=== PATIENT | female | born 1995 | race Caucasian/White ===

== ENCOUNTER 2025-03-04 00:13 | Outpatient (CLI) | payer OTHER, SELFPAY ==
[2025-03-04] VITALS (8 sets, daily range): BP systolic 124–142; BP diastolic 76–81; PULSE 73–95; O2SAT 98–100
[2025-03-04 00:45] LABS: Basophils Percent Auto 0.4 % (0.2-1.2); Eosinophils Percent Auto 0.2 % (0-4.4); Hematocrit 36.8 % (37.0-47.0); Immature Granulocyte Percent A 1.1 % (0-0.5); Lymphocytes Absolute Auto 1.48 K/mm3 (0.9-3.2); Lymphocytes Percent Auto 16.1 % (18.3-44.2); Mean Corpuscular HGB Conc 32.6 g/dl (32-36); Mean Corpuscular Hemoglobin 29.3 pg (26-34); Mean Platelet Volume 10.5 fl (7.4-10.4); Monocytes Absolute Auto 0.7 K/mm3 (0.1-0.6); Monocytes Percent Auto 7.6 % (2.6-8.5); Neutrophils Absolute Auto 6.9 K/mm3 (1.3-6.7); Neutrophils Percent Auto 74.6 % (45.5-73.1); Platelet Count Result 172 k/mm3 (150-375); Red Blood Count 4.09 M/mm3 (4.2-5.4); Red Cell Distribution Width 14.2 % (11.5-14.5); White Blood Count 9.2 K/mm3 (4.5-10.0)
[2025-03-04 00:53] LABS: Creatinine Urine 126.9 mg/dL; Total Protein Urine Random 9 mg/dL; Ur Ttl Prot Creatinine Ratio 0.07 mg/mg (0-0.20)
[2025-03-04 00:56] LABS: Alanine Aminotransferase 49 U/L (6-35); Albumin Level 3.3 g/dL (3.5-5.1); Alkaline Phosphatase 162 U/L (38-126); Anion Gap 10 mmol/L (4-12); Aspartate Amino Transferase 26 U/L (14-36); Bilirubin,Total 0.4 mg/dL (0.2-1.3); Blood Urea Nitrogen 8 mg/dL (7-17); Calcium 8.9 mg/dL (8.4-10.2); Carbon Dioxide 17 mmol/L (22-30); Chloride 107 mmol/L (98-107); Estimated Glomerular Filt Rate > 60; Glucose 125 mg/dL (65-110); Potassium 3.5 mmol/L (3.4-5.0); Sodium 134 mmol/L (137-145); Uric Acid 4.3 mg/dL (2.5-7.5)
[2025-03-04 00:58] LABS: Add Urine Microscopic? YES; Appearance Urine Cloudy (Clear); Bacteria Urine 1+ /hpf; Bilirubin Urine Negative (Negative); Blood Urine Negative (Negative); Calcium Oxalate Crystals Urine Present /hpf; Color Urine Yellow (Yellow); Glucose Urine UA Negative (Negative); Ketones Urine Trace mg/dL (Negative); Leukocyte Esterase Ur Negative LEU/UL (Negative); Mucus Urine Present /lpf; Nitrate Urine Negative (Negative); Non Pathogenic Casts 0-2; Protein Urine Trace mg/dL (Negative); RBC Urine 0-2 /hpf (0-2); Specific Grav Ur 1.028 (1.001-1.035); Squamous Epithelial Cell Urine Moderate /hpf (Few); pH Urine 6.5 (5.0-9.0)
--- NOTE | 2025-03-04 01:05 | PC.NURSE ---
0013- Patient arrives to OB unit via EMS with complaints to a sudden onset of a headache while laying in bed in the last 30-45 minutes and is rating it a 10/10 as well as blurred vision. Patient denies any complications this , she is a with an EDC of 04/05/25. Patient does not see an OB provider that goes here, she states she sees a provider at [facility]. Patient states she took tylenol around 2300 that has not helped her headache. Patient denies any vaginal bleeding or leaking of fluid. Patient has positive movement. 0040- RN notified MD of patient arrival and patient complaints. MD gave orders. 0100- RN notified MD of lab results, VS, and FHT tracing with moderate variability and accelerations as well as no contractions. RN notified MD tylenol was not given due to the patient taking it at 2300. MD gave orders to transfer the patient to the ED to be evaluated.
== END 2025-03-04 01:02 | disposition other institution (70) ==
LOC: ANHOBOP 00:21 → ANHLDR 00:28
PROVIDERS: Visit Provider Obstetrics & Gynecology
DX: Z34.90 Encounter for supervision of normal pregnancy, unspecified, unspecified trimester (principal); R51.9 Headache, unspecified; Z3A.00 Weeks of gestation of pregnancy not specified
CPT/HCPCS: 36415; 59025; 80053; 81001; 82570; 84156; 84550; 85025; 99199

== ENCOUNTER 2025-03-04 01:11 | Emergency (ER) | payer OTHER, SELFPAY ==
--- NOTE | ~2025-03-04 | CT_ITS ---
Non-contrast Head CT History: Headache Technique: Axial non-contrast imaging of the brain was performed. Dose reduction technique was used on this scan by utilizing automated exposure control and iterative reconstruction technique. The dose -length product (DLP) was 681.00 mGy-cm. 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 No other mass lesion noted. No intracranial hemo rrhage or acute infarct.. Brain parenchyma appears normal. The ventricles and subarachnoid spaces a re normal in size. The calvarium appears normal. The visualized paranasal sinuses and mastoid air c ells are clear. 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 Pituitary mass protocol MRI recommended for furt her evaluation. Reviewed, dictated and finalized at [facility]. 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 Pituitary mass protocol MR I recommended for further evaluation.
[2025-03-04 01:13] VITALS: BP 123/81; PULSE 76; RESP 20; TEMP 37; O2SAT 100
--- NOTE | 2025-03-04 01:18 | ED.GENADULT ---
HPI - General Adult General Chief complaint: Headache Stated complaint: Headache Time Seen by Provider: 03/04/25 01:17 History of Present Illness HPI narrative: Patient is a 29-year-old female who presents to the emergency department this evening complaining of sudden onset headache to the back of her head which started approximately 2 hours ago. States that the headache now wraps to the front describing as a tight band around her head. Patient is 35 weeks , denies any recent falls or head trauma, denies any history of hypertension or any complication with her thus far denying any history of preeclampsia or eclampsia. Patient denies any recent illness, fevers or chills. Denies any history of headaches and admits that this headache started suddenly while she was resting. Patient denies any vision changes. Patient was initially seen at L&D for evaluation for preeclampsia and was then sent to the emergency department after willing out preeclampsia. Patient's blood pressures have been stable. Related Data Allergies Allergy/AdvReac Type Severity Reaction Status Date / Time No Known Allergies Allergy Verified 03/04/25 01:34 Review of Systems Review of Systems: All systems are reviewed and are negative unless stated otherwise in the HPI. Exam Narrative: General: Alert, awake, afebrile, in moderate distress secondary to pain. HEENT: PERRL, no rhinorrhea, no post nasal drip, oropharynx clear, no temporal tenderness. Neck: Trachea midline, no JVD, no lymphadenopathy. Cardiovascular: Regular rate and rhythm, no murmurs, rubs or gallops, no peripheral edema. Respiratory: Clear to auscultation bilaterally, no tachypnea, no wheezing, no rhonchi, no rubs, no respiratory distress. Abdomen: Soft, nontender, nondistended, no rebound, no guarding, no peritoneal signs. Musculoskeletal: No joint swelling or deformity, normal muscle tone. Skin: No rashes or petechia, no signs of infection. Psychiatric: Alert and oriented, normal behavior and judgment for situation. Neurological: Alert and oriented to person, place, and time. Follows all commands. No focal deficits, speech is clear and fluent. Course Vital Signs Vital signs: Vital Signs Temperature 98.6 F 03/04/25 01:13 Pulse Rate 76 03/04/25 01:13 Respiratory Rate 20 03/04/25 01:13 Blood Pressure 123/81 03/04/25 01:13 Pulse Oximetry 100 03/04/25 01:13 Oxygen Delivery Room Air 03/04/25 01:13 Temperature 98.6 F 03/04/25 01:13 Pulse Rate 94 03/04/25 03:00 Respiratory Rate 17 03/04/25 03:00 Blood Pressure 120/68 03/04/25 03:00 Pulse Oximetry 97 03/04/25 03:00 Oxygen Delivery Room Air 03/04/25 01:13 Medical Decision Making MDM Narrative Medical decision making narrative: The patient was evaluated by myself in the emergency department. History is obtained from patient who is an independent historian and physical exam was performed. External medical records were reviewed at this time. IV was established and pertinent tests were ordered. Patient was administered 2 L IV fluid bolus with normal saline, 10 mg IV Reglan, 25 mg of IV Benadryl, and 1 g of oral Tylenol for headache. Laboratory results obtained today at L&D included a CBC and CMP and were reviewed revealing no acute process. Urinalysis revealed cloudy urine with trace ketones, 6-10 white blood cells and 1+ bacteria. 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 At this time, patient was informed of these findings at bedside. [facility] transfer center was contacted at 0212 and transfer was initiated for higher level of care including neurosurgery/Maternal- Medicine. Did receive a call back from the on-call physician through the maternal medicine at [facility] Dr. Geronimo at [phone] who accepted transfer. She wants the patient to be sent directly to their L & D triage. Differential diagnosis considerations include intracranial hemorrhage including subarachnoid, dehydration, migraine headache, tension headache, preeclampsia. Comorbidities impacting this visit include none. I have evaluated and discussed social determinants of health with the patient that could potentially impact subsequent diagnosis and treatment plans. On repeat assessment of the patient, reevaluation revealed that the patient is doing well and is in no acute distress. Patient symptoms have improved since she arrived to our emergency department. Repeat vital signs were all reviewed and noted to be stable. Differential diagnosis and treatment plan were discussed with the patient at bedside. Patient agrees with discussion and after shared medical decision making agrees with transfer. All questions were answered to the patient's satisfaction. Vital Signs Vital Signs: Vital Signs Temperature 98.6 F 03/04/25 01:13 Pulse Rate 76 03/04/25 01:13 Respiratory Rate 20 03/04/25 01:13 Blood Pressure 123/81 03/04/25 01:13 Pulse Oximetry 100 03/04/25 01:13 Oxygen Delivery Room Air 03/04/25 01:13 Temperature 98.6 F 03/04/25 01:13 Pulse Rate 94 03/04/25 03:00 Respiratory Rate 17 03/04/25 03:00 Blood Pressure 120/68 03/04/25 03:00 Pulse Oximetry 97 03/04/25 03:00 Oxygen Delivery Room Air 03/04/25 01:13 Discharge Plan Discharge Clinical Impression: Headache, Nausea, Pituitary mass Patient Disposition: Acute Care Hospital Condition: Stable Patient Language: Indonesian Follow-up/Referrals: UNKNOWN,DOCTOR [Primary Care Provider] - Time of Disposition: 03:17
--- NOTE | 2025-03-04 01:20 | PC.NURSE ---
pt currently in ct unable to medicate at this time
--- NOTE | 2025-03-04 01:26 | PC.NURSE ---
Pt in CT at this time.
--- OUTSIDE RECORDS SUMMARY | 2025-03-04 01:33 | XMS_ITS | Encounter Summary ---
Author Organization [facility] Address [facility] [place] [address] Care Team Providers Care Story Teller Name Role Phone Celena Baker Primary Care Provider [phone] Encounter Details Date Type Department Care Team (Late st Contact Info) Description 07/28/2024 Workboardt Message Enc [facility] [address] [place] [id number] Celena Baker APNP [address], [place] [id number] Wellbutrin Social History Tobacco Use Types Packs/Day Years Used Date Smoking Tobacco: Some Days Cigarettes 0.3 5 Smokeless Tobacco: Never Comments:Would like to quit. 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
--- OUTSIDE RECORDS SUMMARY | 2025-03-04 01:33 | XMS_ITS | Clinical Summary ---
Author Organization [facility] Address [address] [place] [id number] Care Team Providers Care Fitness And Wellness Manager Name Role Phone Celena Baker Primary Care Provider Allergies No known active allergies Medications probiotic (FLORAJEN3) Cap capsule Take 1 capsule by mouth daily with breakfast. Active buPROPion XL (WELLBUTRIN XL) 300 MG 24 hr tabletIndicatio ns:Major depressive disorder with single episode, in partial remission TAKE 1 TABLET BY MOUTH DAILY. 90 tablet 1 11/12/2024 Active Vit-Fe Fumarate-FA ( VITAMIN) 27-0.8 MG Tab 07/26/2024 Active Active Problems Problem Noted Date Diagnosed Date , first ([facility]) 12/30/2024 Nephrolithiasis 12/30/2024 Epigastric pain 01/13/[address] scan 01/13/2024 Depression 09/12/2023 Current every day smoker 09/12/2023 Estimated Date of Delivery Comme nts Yes 04/05/2025 Based on Other B asis Encounters Date Type Department Care Team Description 01/03/2025 Telephone [facility] Family & Internal Medicine - [address] [id number] Celena Baker APNP [facility] 12/30/2024 12:11 PM [facility]ER - 01/01/2025 11:35 AM [facility] Hospital Encounter [facility] [place] [address] Joe Grant MD (CVA tenderness, nausea and vomiting, chills ) Discharge Disposition: Home or Self Care (Routine Discharge) 12/30/2024 Travel from Last 3 Months Immunizations Immunization Administration Dates Next Due Dtap (Acel-Immune) 02/19/2001 Hepatitis B (Recombivax Hb 10 Mcg) 01/14/2023 Influenza (Generic) 08/29/2021 Influenza Adult (Generic) 09/04/2023,10/16/2018 MMR (MMRII) 02/19/2001 PFIZER COVID-19 (ORIGINAL FO RMULATION, PURPLE CAP) mRNA, LNP-S, PF, 30 MCG/0.3 ML DOSE 07/08/2021,05/26/2021 Polio IPV (Ipol) 02/19/2001 Family History Medical History Relation Comments Alcohol Abuse Father Depression Father Alcohol Abuse Maternal Grandfather Cancer Maternal Grandmother ovarian Alcohol Abuse Maternal Uncle 1 Cancer Maternal Uncle 2 prostate Alcohol Abuse Mother Depression Mother Hyperlipidemia Mother Cancer Paternal Aunt pancreatic Cancer Paternal Grandfather lung, smoke r Relation Status Comments Father Maternal Grandfather Maternal Grandmother Maternal Uncle 1 Maternal Uncle 2 Mother Paternal Aunt Paternal Grandfather Social History Tobacco Use Types Packs/Day Years Used Date Smoking Tobacco: Former Cigarettes 0.3 5 Smokeless Tobacco: Never Tobacco Cessation:Counseling Given: Not Answered Comments:Would like to quit. Smokes cigarettes socially not daily, Now vaping Provider to weight loss counselor. Alcohol Use Standard Drinks/Week Comments Yes 5 (1 standard drink = 0.6 oz pur e alcohol) PHQ-2 Answer Date Recorded Patient Health Questionnaire-2 Score 1 04/16/2024 Estimated Date of Delivery Comme nts Yes 04/05/2025 Based on Other B asis Sex and Gender Information Value Date Recorded Sex Assigned at Female 12/30/2024 12:07 PM BALLASTER Legal Sex Female 9:41 PM CDT Gender Identity Not on file Sexual Orientation Not on file Last Filed Vital Signs Vital Sign Reading Time Taken Comments Blood Pressure 120/72 01/01/2025 8:00 AM B[facility]ER Pulse 80 01/01/2025 8:00 AM BALLASTER Temperature 36.9 C (98.5 F) 01/01/2025 8:00 AM BALL[facility]ER Respiratory Rate 16 01/01/2025 8:00 AM BALLASTER Oxygen Saturation 98% 01/01/2025 8:00 AM BALLASTER Inhaled Oxygen Concentration - - Weight 86.2 kg (190 lb) 12/31/2024 6:08 AM BALLASTER Height 167.6 cm (5' 6 ) 12/31/2024 6:08 AM BALLASTER Body Mass Index 30.67 12/31/2024 6:08 AM BALLASTER Plan of Treatment Health Maintenance Due Date Last Done Comments Cervical Cancer Screening Pa p Smear (Age 21 to 29) Every 3 Years 1995 Annual Physical 1998 Hepatitis C 2013 DTaP, Tdap and Td Vaccines ( 2 - Tdap) 2014 02/19/2001 Hepatitis B Vaccines (1 of 3 - 19+ 3-dose series) 2014 01/14/2023 COVID-19 Vaccine (2023-2 5 season) 2024 07/08/2021, 05/26/2021 PHQ-2 (Physician Mckinney) 11/03/2024 04/16/2024 Cervical Cancer Screening 04/16/2025 Po stponed from 1995 (Going to Outside Clinic) HPV Vaccines Aged Out No longer eligi ble based on patient's age to complete this topic Meningococcal B Vaccine Aged Out No l onger eligible based on patient's age to complete this topic Meningococcal Vaccine Aged Out No eran paloma eligible based on patient's age to complete this topic Pneumococcal Vaccine: Pediatrics (0 to 5 Years) and At-Risk Patients (6 to 49 Years) Aged Out No longer eligible b ased on patient's age to complete this topic RSV Immunization or 60+ Years (No Doses Required) Completed RSV Immunizations Under 20 Months Aged Out No longer eligible b ased on patient's age to complete this topic Procedures Procedure Name Priority Date/Time Associated Diagnosis Comments BASIC METABOLIC PANEL STAT 12/31/2024 11:[address] ABD+PEL WO CON STAT 12/31/2024 9:4 6 AM BALL[facility]ER TYPE & SCREEN Routine 12/31/2024 6:12 AM BALLASTER CBC W/DIFF AUTOMATED STAT 12/31/2024 6:12 AM BALLASTER US RETROPERITONEAL COMP STAT 12/30/19 4:40 PM BALL[facility]ER URINE BACTERIA CULTURE Routine 2:45 PM BALLASTER HC URINALYSIS AUTO W/O MICRO STAT 12/30/2024 2:45 PM BALLASTER CBC W/DIFF AUTOMATED STAT 12/30/2024 1:10 PM BALLASTER from Last 3 Months Results * (ABNORMAL) BASIC METABOLIC PANEL (12/31/2024 11:27 AM BALLASTER) [facility] GLUCOSE 99 70 - 99 MG/DL 12/31/2024 12:10 PM B[facility]ER [facility] BUN 6(L) 7 - 18 MG/DL 12/31/2024 12:10 PM [facility] CREATININE S/P/B 0.78 0.55 - 1.02 MG/DL 12/31/2024 12:10 PM [facility] SODIUM S/P/B 140 136 - 145 MMOL/L 12/31/2024 12:10 PM [facility] POTASSIUM S/P/B 3.5 3.5 - 5.1 MMOL/L 12/31/2024 12:10 PM [facility] CHLORIDE S/P/B 110 97 - 115 MMOL/L 12/31/2024 12:10 PM [facility] CO2 24.2 21 - 32 MMOL/L 12/31/2024 12:10 PM [facility] CALCIUM S/P/B 8.7 8.5 - 10.1 MG/DL 12/31/2024 12:10 PM [facility]ER [facility] ANION GAP 5.8 2 - 10 MMOL/L 12/31/2024 12:10 PM [facility] BUN CREATININE RATIO 7.7 6 - 26 12/31/2024 12:10 PM [facility] GFR ESTIMATE >90 >90 ML/MIN/1.7 3 M2 12/31/2024 12:10 PM [facility] Comment: NOTE: eGFR is not calculated for patients <18 years of age or gender unknown. This is an estimated GFR calculation using the new CKD EPI creatinine equation without race and so does not require a correction factor for race. This estimated GFR should not be used for calculating drug doses. 12/31/2024 11:2 7 AM BALLASTER Mart Spence MD LABORATORY Final R esult [facility] [address] [place] [address], [place] [phone] * CT ABD+PEL WO CON (12/31/2024 9:46 AM BALLASTER) Anatomical Region Laterality Modality Abdomen Computed Tomogra phy 12/31/2024 10:3 0 AM B[facility]ER Impressions 12/31/2024 12:32 PM BALLASTER =====IMPRESSION:===== 1. Left proximal ureteral stone suspected. This could be obstructive. Mild hydronephrosis and hydroureter proximal to this area is suspected. The stone may be slightly asymmetrically position relative to the ureter and some prominence of the ureter distal to this area is not definitely excluded. This appearance alternatively could be due to adjacent structures. 2. Nonobstructive right renal stones. Right hydronephrosis and hydroureter is seen. Hydroureter is noted to the area of likely compression between the uterus and psoas muscle. No definite obstructing stone on the right side is seen. 3. Additional findings as described above. Ordered By: MART SEPNCE Interpreted By: Ty Green MD, 12/31/2024 10:30 AM Narrative 12/31/2024 12:32 PM B[facility]ASTER [facility] [address] [place], [place] [address] EXAMINATION: CT Abdomen and Pelvis without contrast EXAM DATE/TIME: 12/31/2024 9:40 AM REASON FOR EXAM: rule out ureteral stone Patient . Provider aware and still wants scan according to technologist. Referring clinician states: discussed with patient and OB team. COMPARISON: None TECHNIQUE: Axial CT images of the abdomen and pelvis are obtained without the use of IV contrast agent. Subsequent coronal and sagittal reformatted sequences are created for evaluation. A dose lowering technique was used for this procedure, which may include, but is not limited to, dose reduction technique, automated exposure control, the use of iterative reconstruction, and ALARA (As Low As Reasonably Achievable) / Image Gently techniques. FINDINGS: Exam is somewhat limited due to metallic artifact from prior spinal surgery. 3 mm calcification is seen on image 72. I suspect this is within the left ureter although some images show this to be possibly slightly asymmetrically position relative to the ureter such as on image 59 of coronal series 4. Mild left hydronephrosis and hydroureter is noted proximal to this stone. The suspected stone is seen positioned adjacent to the L3 vertebra. Mild hydroureter is suspected. This however may extend distal to the area of suspected stone. Multiple right ureteral stones are seen which are nonobstructive located in the inferior right kidney. Likely conglomeration of small stones such as on image 60 of axial series 2 is seen. Suspected conglomerate measures 9 mm. Additional stone more inferiorly is seen on image 66. Mild to moderate right hydronephrosis and hydroureter is seen to the region of the superior anatomic pelvis. There is likely compression of the right ureter between the uterus and psoas musculature. The ureter distal to this region is not well visualized. No definite right ureteral stone or urinary bladder stone is seen. Lung Bases: Bilateral linear atelectasis is noted. Liver:Unremarkable. Gallbladder and Biliary system:Prior cholecystectomy is noted. Pancreas:Unremarkable. Spleen:No splenomegaly. Kidneys:As described above Ureters and bladder: As described above. In addition, the urinary bladder is somewhat distended. Adrenals:Normal. Bowel:Colonic and rectal stool is seen. No small bowel dilatation is seen.The stomach, duodenum, and viewed portions of the esophagus are unremarkable.The appendix is visualized and is within normal limits. Aorta and Retroperitoneum:No enlarged lymph nodes. Aorta is not aneurysmal. Pelvic Organs:Intrauterine gestation is noted. Evaluation is limited. Bone/Musculoskeletal: Postoperative changes spine is incompletely visualized. Curvature the spine is seen. Ascites: None Additional Findings: other Procedure Note Ty Green MD - 12/31/[address] [address] EXAMINATION: CT Abdomen and Pelvis without contrast EXAM DATE/TIME: 12/31/2024 9:40 AM REASON FOR EXAM: rule out ureteral stone Patient . Provider aware and still wants scan according totechnologist. Referring clinician states: discussed with patient and OBteam. COMPARISON: None TECHNIQUE: Axial CT images of the abdomen and pelvis are obtained withoutthe use of IV contrast agent. Subsequent coronal and sagittal reformattedsequences are created for evaluation. A dose lowering technique was usedfor this procedure, which may include, but is not limited to, dosereduction technique, automated exposure control, the use of iterativereconstruction, and ALARA (As Low As Reasonably Achievable) / Image Gentlytechniques. FINDINGS: Exam is somewhat limited due to metallic artifact from priorspinal surgery. 3 mm calcification is seen on image 72. I suspect this is within the leftureter although some images show this to be possibly slightlyasymmetrically position relative to the ureter such as on image 59 ofcoronal series 4. Mild left hydronephrosis and hydroureter is notedproximal to this stone. The suspected stone is seen positioned adjacent tothe L3 vertebra. Mild hydroureter is suspected. This however may extenddistal to the area of suspected stone. Multiple right ureteral stones are seen which are nonobstructive locatedin the inferior right kidney. Likely conglomeration of small stones suchas on image 60 of axial series 2 is seen. Suspected conglomerate measures9 mm. Additional stone more inferiorly is seen on image 66. Mild tomoderate right hydronephrosis and hydroureter is seen to the region of thesuperior anatomic pelvis. There is likely compression of the right ureterbetween the uterus and psoas musculature. The ureter distal to this regionis not well visualized. No definite right ureteral stone or urinarybladder stone is seen. Lung Bases: Bilateral linear atelectasis is noted. Liver:Unremarkable. Gallbladder and Biliary system:Prior cholecystectomy is noted. Pancreas:Unremarkable. Spleen:No splenomegaly. Kidneys:As described above Ureters and bladder: As described above. In addition, the urinary bladderis somewhat distended. Adrenals:Normal. Bowel:Colonic and rectal stool is seen. No small bowel dilatation isseen.The stomach, duodenum, and viewed portions of the esophagus areunremarkable.The appendix is visualized and is within normal limits. Aorta and Retroperitoneum:No enlarged lymph nodes. Aorta is notaneurysmal. Pelvic Organs:Intrauterine gestation is noted. Evaluation is limited. Bone/Musculoskeletal: Postoperative changes spine is incompletelyvisualized. Curvature the spine is seen. Ascites: None Additional Findings: other =====IMPRESSION:===== 1. Left proximal ureteral stone suspected. This could be obstructive.Mild hydronephrosis and hydroureter proximal to this area is suspected.The stone may be slightly asymmetrically position relative to the ureterand some prominence of the ureter distal to this area is not definitelyexcluded. This appearance alternatively could be due to adjacentstructures. 2. Nonobstructive right renal stones. Right hydronephrosis andhydroureter is seen. Hydroureter is noted to the area of likelycompression between the uterus and psoas muscle. No definite obstructingstone on the right side is seen. 3. Additional findings as described above. Ordered By: MART SPENCE Interpreted By: Ty Green MD, 12/31/2024 10:30 AM Mart Spence MD CT Final R esult * TYPE & SCREEN (12/31/2024 6:12 AM BALL[facility]ER) ABO/RH O POSITIVE 12/31/2024 7:43 AM [facility]ER [facility] ANTIBODY SCREEN NEGATIVE 12/31/2024 7:43 AM [facility]ER [facility] SAMPLE EXPIRATION 01/03/2025,2 359 12/31/2024 7:43 AM [facility] 12/31/2024 6:12 AM B[facility]ER Karen Jha MD BLOOD BANK TEST ORDERABLES Final Result [facility] [address] [place] [address], * (ABNORMAL) CBC W/DIFF AUTOMATED (12/31/2024 6:12 AM BALLASTER) Only the most recent of2 resultswithin the time period is included. WBC 9.68 4.5 - 11.0 x10'3/uL 12/31/2024 6:37 AM [facility] RBC 3.31(L) 4.20 - 5.40 x10'6/uL 12/31/2024 6:37 AM [facility] HGB 9.9(L) 12.0 - 16.0 G/DL 12/31/2024 6:37 AM [facility] HCT 30.3(L) 38.0 - 48.0 % 12/31/2024 6:37 AM [facility] MCV 91.5 81.0 - 99.0 FL 12/31/2024 6:37 AM [facility] MCH 29.9 27.0 - 31.0 PG 12/31/2024 6:37 AM [facility] MCHC 32.7 32.0 - 36.0 G/DL 12/31/2024 6:37 AM [facility] RDW 13.4 11.5 - 14.5 % 12/31/2024 6:37 AM [facility] PLT 149 130 - 400 x10'3/uL 12/31/2024 6:37 AM [facility] MPV 10.3 9.3 - 12.2 FL 12/31/2024 6:37 AM [facility] DIFFERENTIAL TYPE AUTOMATED DIFFERENTIAL 12/31/2024 6:37 AM [facility] NEUTROPHILS % 83.4 % 12/31/2024 6:37 AM [facility] LYMPHOCYTES % 10.6 % 12/31/2024 6:37 AM [facility] MONOCYTES % 4.8 % 12/31/2024 6:37 AM [facility] EOSINOPHILS 0.0 % 12/31/2024 6:37 AM [facility] BASOPHILS 0.2 % 12/31/2024 6:37 AM [facility] IMMATURE GRANS % 1.0 % 12/31/19 6:37 AM [facility] ABS. NEUTROPHILS 8.07(H) 1.80 - 7.70 x10'3/uL 12/31/2024 6:37 AM [facility] ABS. LYMPHOCYTES 1.03 1.00 - 4.80 x10'3/uL 12/31/2024 6:37 AM [facility] ABS. MONOCYTES 0.46 0.24 - 0.86 x10'3/uL 12/31/2024 6:37 AM [facility] ABS. EOSINOPHILS 0.00(L) 0.04 - 0.36 x10'3/uL 12/31/2024 6:37 AM [facility] ABS. BASOPHILS 0.02 0.01 - 0.08 x10'3/uL 12/31/2024 6:37 AM [facility] ABS. IMMATURE GRANULOCYTES 0.10 0.00 - 0.49 x10'3/uL 12/31/2024 6:37 AM [facility]ER [facility] 12/31/2024 6:12 AM BALL[facility]ER Karen Jha MD LABORATORY Final Resu lt [facility] [address] [place] [address], [place] [phone] * US RETROPERITONEAL COMP (12/30/2024 4:40 PM BALLASTER) Anatomical Region Laterality Modality Abdomen Ultrasound 12/30/2024 4:46 PM B[facility]ER Impressions 12/30/2024 4:56 PM B[facility]ER IMPRESSION: 1. Mild bilateral hydronephrosis. 2. 5.7 mm echogenic foci in the lower pole right kidney consistent with calcification. No apparent left renal calcification. 3. Right ureteral jet visualized in the urinary bladder but not the left ureteral jet. Ordered By: KAREN JHA Interpreted By: Catrachito Reza, 12/30/2024 4:46 PM Narrative 12/30/2024 4:56 PM B[facility]ER [facility] [address] [place], [place] [address] IMAGING STUDIES: US RETROPERITONEAL COMP DATE: 12/30/2024 3:51 PM HISTORY: left flank pain, hematuria 29-year-old female. Approximately 26 week 2 day gestation . Left flank pain and microscopic hematuria. Patient reports onset of left flank pain at 0400 hours today with associated vomiting. History right cervical pain as 10/10 on the pain scale. She reports good movement with no vaginal fluid leakage or contractions. COMPARISON: CT abdomen pelvis with contrast 11/18/2023. DISCUSSION: Right kidney 13.1 x 6.6 x 6.8 cm. Mild right hydronephrosis. In the lower pole right kidney is 5.7 x 5.3 x 3.4 mm echogenic foci with color Doppler artifact consistent with calcification. Left kidney 12.7 x 6.1 x 6.3 cm. Mild left hydronephrosis. No appreciable left renal calcification. Normal color Doppler signal within both kidneys. Mild urinary bladder distention. No focal wall thickening or bladder calcification. On color Doppler imaging of the urinary bladder, right ureteral jet visualized consistent with patent ureter. The left ureteral jet was not visualized during the time of interrogation. Limited imaging including cine images. cardiac motion with estimated heart rate 136 bpm on M-mode ultrasound. Upper abdominal inferior vena cava within normal limits on grayscale and color Doppler imaging. Procedure Note Catrachito Reza MD - 12/30/[address] [address] IMAGING STUDIES: US RETROPERITONEAL COMPDATE: 12/30/2024 3:51 PM HISTORY: left flank pain, hematuria 29-year-old female.Approximately 26 week 2 day gestation . Left flank pain andmicroscopic hematuria. Patient reports onset of left flank pain at 0400hours today with associated vomiting. History right cervical pain as 10/10on the pain scale. She reports good movement with no vaginal fluidleakage or contractions. COMPARISON: CT abdomen pelvis with contrast 11/18/2023. DISCUSSION: Right kidney 13.1 x 6.6 x 6.8 cm. Mild right hydronephrosis. In the lowerpole right kidney is 5.7 x 5.3 x 3.4 mm echogenic foci with color Dopplerartifact consistent with calcification. Left kidney 12.7 x 6.1 x 6.3 cm. Mild left hydronephrosis. No appreciableleft renal calcification. Normal color Doppler signal within both kidneys. Mild urinary bladder distention. No focal wall thickening or bladdercalcification. On color Doppler imaging of the urinary bladder, rightureteral jet visualized consistent with patent ureter. The left ureteraljet was not visualized during the time of interrogation. Limited imaging including cine images. cardiac motion withestimated heart rate 136 bpm on M-mode ultrasound. Upper abdominal inferior vena cava within normal limits on grayscale andcolor Doppler imaging. IMPRESSION: 1. Mild bilateral hydronephrosis. 2. 5.7 mm echogenic foci in the lower pole right kidney consistent withcalcification. No apparent left renal calcification. 3. Right ureteral jet visualized in the urinary bladder but not the leftureteral jet. Ordered By: KAREN JHA Interpreted By: Catrachito Reza, 12/30/2024 4:46 PM us Karen Jha MD ULTRASOUND Final Resu lt * (ABNORMAL) URINALYSIS (12/30/2024 2:45 PM BALLASTER) SPECIMEN TYPE URINE CLEAN CATCH 12/30/2024 2:47 PM [facility]ER [facility] COLOR (U) YELLOW 12/30/2024 3:20 PM [facility]ER [facility] TRANSPARENCY TURBID 12/30/2024 3:20 PM [facility] SPECIFIC GRAVITY (U) 1.020 1.001 - 1.030 12/30/2024 3:20 PM [facility]ER [facility] U PH 6.5 5.0 - 9.0 12/30/2024 3:20 PM [facility] LEUKOCYTES (U) NEGATIVE NEGATIVE 12/30/2024 3:20 PM [facility]ER [facility] NITRITES NEGATIVE NEGATIVE 12/30/2024 3:20 PM [facility] PROTEIN RANDOM (U) NEGATIVE <30 MG/DL 12/30/2024 3:20 PM [facility]ER [facility] GLUCOSE (U) NORMAL NORMAL MG/DL 12/30/2024 3:20 PM [facility] KETONES MG/DL (U) 20(A) NEGATIVE MG/DL 12/30/2024 3:20 PM [facility] UROBILINOGEN NORMAL NORMAL MG/DL 12/30/2024 3:20 PM [facility]ER [facility] BILIRUBIN (U) NEGATIVE NEGATIVE MG/DL 12/30/2024 3:20 PM B[facility]ER [facility] BLOOD (U) 3+(A) NEGATIVE 12/30/2024 3:20 PM [facility] MUCUS RARE /LPF 12/30/2024 3:20 PM [facility] WBC/HPF 4 <6 /HPF 12/30/2024 3:20 PM [facility]ER [facility] RBC/HPF >100(H) <6 /HPF 12/30/2024 3:20 PM [facility]ER [facility] BACTERIA (U) RARE(A) NONE /HPF 12/30/2024 3:20 PM [facility] SQUAMOUS EPITHELIALS FEW /HPF 12/30/2024 3:20 PM [facility]ER [facility] URINE SPECIMEN OBTAINED BY CLEAN CATCH PROCEDURE / Unknown 12/30/2024 2:45 PM BALLASTER us Karen Jha MD URINE ORDERABLES Final Res ult [facility] [address] [place] [address], [place] [phone] * URINE BACTERIA CULTURE (12/30/2024 2:45 PM BALLASTER) SPEC DESCRIPTION URINE CLEAN CATCH 12/30/2024 3:34 PM B[facility]ER [facility] SPECIAL REQUESTS NO SPECIAL REQUEST 12/30/2024 3:34 PM B[facility]ER [facility] CULTURE RESULT POLYMICROBIAL GROWTH CONSISTENT WITH NORMAL GENITAL SKY. SUSCEPTIBILITIES NOT ROUTINELY PERFORMED. 12/31/2024 8:06 AM B[facility]ASTER [facility] URINE SPECIMEN OBTAINED BY CLEAN CATCH PROCEDURE / Unknown 12/30/2024 2:45 PM BALLASTER 12/30/2024 3:34 PM BALLASTER us Karen Jha MD MICROBIOLOGY - GENERAL ORD ERABLES Final Result [facility] [address] [place] [address], [place] [phone] from Last 3 Months Insurance [employer] Advance Directives * Full Code (Latest Code Status on File) Date Activated Date Inactivated Comments 12/30/2024 4:19 PM 01/01/2025 1:39 PM Care Teams Fitness And Wellness Manager Relationship Specialty Start Date End Date Celena Baker APNP [address] [place] [id number] PCP - General NURSE PRACTITIONER 09/12/23
--- OUTSIDE RECORDS SUMMARY | 2025-03-04 01:33 | XMS_ITS | Data Portability ---
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 Michael Noonan [id number] Elizabeth Noonan 01/14/2025 1 [employer] (PPO) [id number] Elizabeth Noonan [id number] Elizabeth Noonan 01/28/2025 1 [employer] (PPO) [id number] Elizabeth Noonan [id number] Elizabeth Noonan 02/11/2025 1 U[employer] (PPO) [id number] Elizabeth Noonan [id number] Elizabeth Noonan 02/25/2025 1 UMR (PPO) [id number] Elizabeth Michael Noonan [id number] Elizabeth Saran Notes Date Note Type Note Provider Name and Address Organization Details Recorded Time 12/30/2024 text/html Elizabeth is her e for ob problem visitpatient is 26.2 weekspatient c/o really bad back pains since 4am this morningpatient c/o vomiting and feeling hot and cold as well Llui Agustin, [facility] [address], [place], [address], [facility] 12/30/2024 14:13:36 01/14/2025 text/html The patient sonja liconay consented to documentation via virtual scribe for this encounter. Patient is here today for a routine OB visit. She is currently at {{6 7 8 9 10 11 12 1 3 14 15 16 17 18 19 20 21 22 23 24 25 26 27 28 29 30 31 32 3 3 34 35 36 37 38 39 40 41 28.3#}} weeks gestation. vitamins: {{yes* no}} She {{has* has not}} felt movement.She denies any complaints of the presence of vaginal bleed, leaking fluid, abdominal cramps, nausea, vomiting, headache or visual disturbances. Pt has no concerns. EPDS score 7. 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 Joe Gratn MD [address] [place], [address], [facility] [employer] 02/04/2025 12:56:43 01/28/2025 text/html Patient is here today for a routine OB visit. She is currently at {{6 7 8 9 10 11 12 1 3 14 15 16 17 18 19 20 21 22 23 24 25 26 27 28 29 30 31 32 3 3 34 35 36 37 38 39 40 41 30.3#}} weeks gestation. vitamins: {{yes* no}} She {{has* has not}} felt movement.She denies any complaints of the presence of vaginal bleed, leaking fluid, abdominal cramps, nausea, vomiting, headache or visual disturbances. Pt. has no concerns. DORIS RUST NP [address] [place], [address], [facility] [employer] IV 02/01/2025 15:11:19 02/11/2025 text/html Patient is here today for a routine OB visit. She is currently at {{6 7 8 9 10 11 12 1 3 14 15 16 17 18 19 20 21 22 23 24 25 26 27 28 29 30 31 32 3 3 34 35 36 37 38 39 40 41 32.3#}} weeks gestation. vitamins: {{yes* no}} She {{has* has not}} felt movement.She denies any complaints of the presence of vaginal bleed, leaking fluid, abdominal cramps, nausea, vomiting, headache or visual disturbances. Pt. has no concerns DORIS RUST NP [address] [place], [address], [facility] [employer] 02/19/2025 15:42:38 02/25/2025 text/html Patient is here today for a routine OB visit. She is currently at {{6 7 8 9 10 11 12 1 3 14 15 16 17 18 19 20 21 22 23 24 25 26 27 28 29 30 31 32 3 3 34 35 36 37 38 39 40 41 34.3#}} weeks gestation. vitamins: {{yes* no}} She {{has* has not}} felt movement. She denies any complaints of the presence of vaginal bleed, leaking fluid, abdominal cramps, nausea, vomiting, headache or visual disturbances. PASQUALE GUERRA [address] [place], [address], [facility] 02/25/2025 16:41:40 OBGyn Episode Ob Episode Information Episode Created Date Number of Fetuses Patient Bloodtype Patient rh Status Prepregnancy Weight lbs Domestic Partner Domestic Partner Phone Father Name Scientific Research Associate Status 09/13/20 24 1 O Positive OPEN Fetus Data First Name Last Name Admitted to NICU Weight (g) Sex Living Outcome Pediatric Complications Fetus ID Race Codes Race Delivery Type [id number] Problems Problem Notes Problem Name Start Date End Date Resolution Snomed Code Not e Rubella non-immune 01/14/2025 [id number] measles ni and after delivery mmr Varicella non-immune 01/14/2025 [id number] Salomón Calculation Initial Salomón Date Initial Exam Date Initial Exam Provider Initial Ultrasound Date Last Menstrual Period Date Ultra Sound Weeks Gestation 04/05/2025 09/13/2024 08/12/2024 0 Eighteen To Twenty Week Salomón Update Ultra Sound Date Fundal Height At Umbil Quickening Date Ultra Sound Latest Weeks Gestation Final Salomón Confirmed By Final Salomón Confirmed Date Final Salomón Date Ultra Sound Latest Days Gestation 0 0 Pre- Flowsheet Flowsheet Date 09/13/2024 Elam Score Blood Edema Fundus Height Fundus Units Glucose Ketones Leukocytes Nitrite Labor Signs Protein Cervic Dilation Cervic Effacement Cervic Station none neg Type Weight in lbs Pre/Post Dialysis Refused With clothes 176.789946237383 BP Diastolic BP Location Tested BP Systolic BP Type 70 120 sitting Fetus Heart Rate Present A 145 Fetus Movement A No Comments mild n/v declines meds, IOB labs and AdvanDx Flowsheet Date 10/12/2024 Elam Score Blood Edema Fundus Height Fundus Units Glucose Ketones Leukocytes Nitrite Labor Signs Protein Cervic Dilation Cervic Effacement Cervic Station none none neg Type Weight in lbs Pre/Post Dialysis Refused 184.834394663265 BP Diastolic BP Location Tested BP Systolic BP Type 72 122 sitting Fetus Heart Rate Present A 150 Fetus Movement A No Comments No OB complaints. reports im proved N/V . RTC in 3 wks Flowsheet Date 11/04/2024 Elam Score Blood Edema Fundus Height Fundus Units Glucose Ketones Leukocytes Nitrite Labor Signs Protein Cervic Dilation Cervic Effacement Cervic Station none neg Type Weight in lbs Pre/Post Dialysis Refused 185.048996122317 BP Diastolic BP Location Tested BP Systolic BP Type 72 110 sitting Fetus Heart Rate Present A 148 Fetus Movement A No Comments No OB complaints active fetu s on BSU. AFP today RTC in 2 wks for Anatomy US. Flowsheet Date 11/18/2024 Elam Score Blood Edema Fundus Height Fundus Units Glucose Ketones Leukocytes Nitrite Labor Signs Protein Cervic Dilation Cervic Effacement Cervic Station none neg Type Weight in lbs Pre/Post Dialysis Refused 189.880812950069 BP Diastolic BP Location Tested BP Systolic BP Type 72 118 sitting Fetus Heart Rate Present A 148 Present Fetus Movement A Yes Comments Anatomy complete 77%tile, Po sterior placenta, normal RYAN. RTC in 4 wks. Flowsheet Date 12/14/2024 Elam Score Blood Edema Fundus Height Fundus Units Glucose Ketones Leukocytes Nitrite Labor Signs Protein Cervic Dilation Cervic Effacement Cervic Station none none none neg Type Weight in lbs Pre/Post Dialysis Refused With clothes 190.344251537654 BP Diastolic BP Location Tested BP Systolic BP Type 74 118 sitting Fetus Heart Rate Present A 141 Present Fetus Movement A Yes Comments No OB concerns today. Denies any LOF, vaginal bleeding, cramping/ctx. PTL precautions discussed. Educated on 1hr GTT next visit. RTC - 4wks for 3T labs & 1hr GTT Flowsheet Date 12/30/2024 Elam Score Blood Edema Fundus Height Fundus Units Glucose Ketones Leukocytes Nitrite Labor Signs Protein Cervic Dilation Cervic Effacement Cervic Station Type Weight in lbs Pre/Post Dialysis Refused With clothes 190.471206659804 BP Diastolic BP Location Tested BP Systolic BP Type 70 120 sitting Fetus Heart Rate Present Fetus Movement Comments Flowsheet Date 01/14/2025 Elam Score Blood Edema Fundus Height Fundus Units Glucose Ketones Leukocytes Nitrite Labor Signs Protein Cervic Dilation Cervic Effacement Cervic Station none 31 cm none neg Type Weight in lbs Pre/Post Dialysis Refused Weight 192.834910150380 BP Diastolic BP Location Tested BP Systolic BP Type 78 102 Fetus Heart Rate Present A 140 Present Fetus Movement A Yes Comments 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 She h as a boy, no name yet. Good movements and adequate fluid. Flowsheet Date 01/28/2025 Elam Score Blood Edema Fundus Height Fundus Units Glucose Ketones Leukocytes Nitrite Labor Signs Protein Cervic Dilation Cervic Effacement Cervic Station 33 cm none Type Weight in lbs Pre/Post Dialysis Refused With clothes 192.437856924046 BP Diastolic BP Location Tested BP Systolic BP Type 60 106 sitting Fetus Heart Rate Present A 150 Fetus Movement A Yes Comments No OB complaints discussed [facility]. RTC in 2 wks Flowsheet Date 02/11/2025 Elam Score Blood Edema Fundus Height Fundus Units Glucose Ketones Leukocytes Nitrite Labor Signs Protein Cervic Dilation Cervic Effacement Cervic Station 34 cm none neg Type Weight in lbs Pre/Post Dialysis Refused Weight 193.280312698806 BP Diastolic BP Location Tested BP Systolic BP Type 76 114 sitting Fetus Heart Rate Present A 134 Present Fetus Movement A Yes Comments No OB complaints. RTC in 2 [facility] Flowsheet Date 02/25/2025 Elam Score Blood Edema Fundus Height Fundus Units Glucose Ketones Leukocytes Nitrite Labor Signs Protein Cervic Dilation Cervic Effacement Cervic Station none 35 cm none none neg Type Weight in lbs Pre/Post Dialysis Refused With clothes 199.688361812759 BP Diastolic BP Location Tested BP Systolic BP Type 68 102 sitting Fetus Heart Rate Present A 153 Fetus Movement A Yes Comments No ob concerns. RTC in 2 [facility], plan for GBS at next visit. Menstrual History Last Menstrual Date Menses Monthly On Bcp Conception Prior Menses Frequency Hcg Plus Date Menarche Onset Age Delivery Information Delivery Date Delivery Type Labor Anesthesia Weeks Gestation Incision Type Labor Labor Length Hrs Delivered By Post Complications Tubal Sterilization Discharge Date Comments Discharge Information Feeding Method Contraceptive Method Maternal HG B and HCT Levels
--- OUTSIDE RECORDS SUMMARY | 2025-03-04 01:33 | XMS_ITS | Clinical Summary ---
Author Organization [facility] Address [address] [place] [address] Care Team Providers Care Research Nurse Name Role Phone Unknown, Provider Primary Care Provider Unavaila ble Source Comments [facility],non-owned Affiliates and Associated Physician Practices is amultiple site organization consisting of ambulatory clinics and hospital sitesin [place], [place], [place] and [place]. This disclosure is being madepursuant to the Care Everywhere program and may not contain all information available regarding this patient. Last updated 18.[facility] Allergies No known active allergies Medications * Be aware that medications may not be up to date on this document. Alwaysverify current medications with the patient. 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 Gender Identity Not on file Sexual Orientation Not on file Last Filed Vital Signs Vital Sign Reading Time Taken Comments Blood Pressure 110/66 09/02/2016 3:39 PM CDT Pulse 73 09/02/2016 3:39 PM CDT Temperature 36.9 C (98.5 F) 09/02/2016 3:39 PM CDT Respiratory Rate 18 09/02/2016 3:39 PM CDT Oxygen Saturation - - Inhaled Oxygen Concentration - - Weight 61.2 kg (135 lb) 09/02/2016 3:39 PM CDT Height 167.6 cm (5' 6 ) 09/02/2016 3:39 PM CDT Body Mass Index 21.79 09/02/2016 3:39 PM CDT Plan of Treatment Health Maintenance Due Date Last Done Comments HIV SCREENING 2010 HEPATITIS C SCREENING 11/30/2013 DTAP/TDAP/TD VACCINES (1 - Tdap) 2014 HEPATITIS B VACCINE (1 of 3 - 19+ 3-dose series) 2014 COVID-19 VACCINE (1 - 2023-2 5 season) 2024 DEPRESSION SCREENING 11/03/2024 INFLUENZA VACCINE (Season Ended) 2025 ZOSTER VACCINE (1 of 2) 2045 HIB VACCINE Aged Out No longer eligi ble based on patient's age to complete this topic HPV VACCINE Aged Out No longer eligi ble based on patient's age to complete this topic MENINGOCOCCAL (Group B) VACC INE SHARED DECISION-MAKING Aged Out No longer eligibl e based on patient's age to complete this topic MENINGOCOCCAL GROUPS A/C/Y/W VACCINE Aged Out No longer eligible b ased on patient's age to complete this topic PNEUMOCOCCAL VACCINE Aged Out No long er eligible based on patient's age to complete this topic Insurance Care Teams Research Nurse Relationship Specialty Start Date End Date Unknown, Provider PCP - General 01/06/17
[2025-03-04] MEDS: SODIUM CHLORIDE 0.9% IV 1,000 ML 999 ML IV CONT ×2 (01:34→02:02)
[2025-03-04] MEDS: METOCLOPRAMIDE HCL INJ 10 MG/2 ML VIAL IV PUSH (01:35)
[2025-03-04] MEDS: diphenhydrAMINE HCl INJ 50 MG/ML VIAL 25 MG IV PUSH (01:35)
[2025-03-04] MEDS: SODIUM CHLORIDE 0.9% IV 200 ML 100 ML (01:35)
[2025-03-04 01:50] VITALS: BP 92/55; PULSE 74; RESP 16; O2SAT 98
[2025-03-04] MEDS: ACETAMINOPHEN 500 MG TABLET 1000 MG PO (02:02)
[2025-03-04 03:00] VITALS: BP 120/68; PULSE 94; RESP 17; O2SAT 97
== END 2025-03-04 04:14 | disposition short-term general hospital (02) ==
PROVIDERS: Emergency Provider Emergency Medicine
DX: O26.893 Other specified pregnancy related conditions, third trimester (principal); R51.9 Headache, unspecified; R11.0 Nausea; O99.283 Endocrine, nutritional and metabolic diseases complicating pregnancy, third trimester; E23.7 Disorder of pituitary gland, unspecified; Z3A.35 35 weeks gestation of pregnancy
CPT/HCPCS: 70450; 96361; 96374; 96375; 99285; A9270; J1200; J2765; J7030